=== PATIENT | female | born 1945 | race Caucasian/White ===

== ENCOUNTER 2017-09-09 09:43 | Emergency (ER) | payer OTHER ==
[~2017-09-09] VITALS: Ht 170.2 cm; Wt 118.8 kg
[~2017-09-09 09:43] MED LIST: CELECOXIB200 MG PO; CENTRUM ULTRA1 EAC1 PO; COZAAR100 MG PO; FISH OIL 1,0001 EA10 PO; HYDROCODON-ACE1 EAC7 PO; IRON325 MG PO; LO-DOSE ASPIRIN81 M1 PO; NORVASC10 MG PO; SYNTHROID137 MCG PO; TYLENOL EXTRA500 MG PO; VITAMIN D2000 INTUN PO
[2017-09-09 10:23] LABS: BASOPHIL COUNT 0.1 K/uL (0-0.1); EOSINOPHIL (%) 0.7 % (0-5); EOSINOPHIL COUNT 0.1 K/uL (0-0.3); HEMATOCRIT 37.7 % (36.0-46.0); IMMATURE GRANULOCYTE (%) 0.5 % (0.0-0.7); INSTRUMENT ABS NEUTROPHIL CT 5.7 K/uL; LYMPHOCYTE COUNT 1.5 K/uL (1.0-2.8); MCH 29.6 PG (29.0-34.0); MCV 87.1 FL (83-99); MEAN PLAT.VOLUME 9.6 uM^3 (9.5-12.4); MONOCYTE (%) 7.7 % (3-12); MONOCYTE COUNT 0.6 K/uL (0-0.8); NEUTROPHIL (%) 70.8 % (45-76); NEUTROPHIL COUNT 5.7 K/uL (1.8-6.4); PLATELET COUNT 320 K/uL (156-360); RBC DIS.WIDTH-CV 12.5 % (11.8-14.6); RBC DIS.WIDTH-SD 40.1 % (39-53); RED BLOOD COUNT 4.33 M/uL (3.80-5.20)
[2017-09-09 10:33] LABS: CHLORIDE 99 mEq/L (99-109); POTASSIUM 4.5 mEq/L (3.7-5.4); SODIUM 130 mEq/L (136-147)
[2017-09-09 10:35] LABS: GLUCOSE 120 mg/dL (70-99)
[2017-09-09 10:36] LABS: ANION GAP 12 MEQ/L (2-14)
[2017-09-09 10:37] LABS: TOTAL BILIRUBIN 1.3 mg/dL (0.0-1.0)
[2017-09-09 10:38] LABS: ALKALINE PHOSPHATASE 158 IU/L (3-129)
[2017-09-09 10:39] LABS: GFR ESTIMATE (CALCULATED) 58 mL/min/
[2017-09-09 10:40] LABS: UREA NITROGEN (BUN) 12 mg/dL (9-23)
[2017-09-09 10:42] LABS: LIPASE 18 U/L (1.0-51.0)
[2017-09-09 12:11] LABS: ADD MIUA? YES; BILIRUBIN NEGATIVE; BLOOD SMALL; COLOR STRAW ((YELLOW)); GLUCOSE (STRIP) NEGATIVE; KETONES NEGATIVE; LEUKOCYTES NEGATIVE; NITRITE NEGATIVE; PROTEIN (STRIP) NEGATIVE; SPECIFIC GRAVITY 1.009 (1.000-1.030); UROBILINOGEN 0.2 MG/DL (0.2-1.0)
[2017-09-09 12:14] LABS: BACTERIA NONE SEEN /HPF; EPITHELIAL CELLS RARE /HPF; MUCUS NONE SEEN /LPF; RED BLOOD CELLS 0-5 /HPF (0-5); UCUL ADDED? NO; WHITE BLOOD CELLS 0-5 /HPF (0-5)
[2017-09-09] MEDS ORDERED: CIPRO500 MG PO (14:09)
[2017-09-09] MEDS ORDERED: ZOFRAN ODT4 MG PO (14:09)
[2017-09-09] MEDS ORDERED: FLAGYL500 MG PO (14:09)
[2017-09-09 16:00] VITALS: BP 119/74
== END 2017-09-09 16:00 | disposition home or self-care (01) ==
LOC: EME 09:43
PROVIDERS: Emergency Medicine
DX: K57.32 Diverticulitis of large intestine without perforation or abscess without bleeding (principal); E86.0 Dehydration; R11.0 Nausea; R19.7 Diarrhea, unspecified; Q61.02 Congenital multiple renal cysts; Z90.49 Acquired absence of other specified parts of digestive tract; I10 Essential (primary) hypertension; Z88.0 Allergy status to penicillin
CPT/HCPCS: 74177; 80053; 81003; 83690; 85025; 99281; 99285; J0744; J2405; J7030; S0030

== ENCOUNTER 2017-10-16 13:19 | Emergency (ER) | payer OTHER ==
[~2017-10-16] VITALS: Ht 170.2 cm; Wt 116.3 kg
[~2017-10-16 13:19] MED LIST changes: +CIPRO500 MG PO; +FLAGYL500 MG PO; +ZOFRAN ODT4 MG PO
[2017-10-16 14:09] LABS: BASOPHIL COUNT 0.1 K/uL (0-0.1); EOSINOPHIL (%) 0.7 % (0-5); EOSINOPHIL COUNT 0.1 K/uL (0-0.3); HEMATOCRIT 40.7 % (36.0-46.0); IMMATURE GRANULOCYTE (%) 0.4 % (0.0-0.7); INSTRUMENT ABS NEUTROPHIL CT 7.3 K/uL; LYMPHOCYTE COUNT 2.3 K/uL (1.0-2.8); MCH 29.1 PG (29.0-34.0); MCHC 33.4 G/DL (30.0-36.0); MEAN PLAT.VOLUME 9.1 uM^3 (9.5-12.4); MONOCYTE COUNT 0.6 K/uL (0-0.8); NEUTROPHIL (%) 70.1 % (45-76); NEUTROPHIL COUNT 7.3 K/uL (1.8-6.4); PLATELET COUNT 334 K/uL (156-360); RBC DIS.WIDTH-SD 41.1 % (39-53); RED BLOOD COUNT 4.68 M/uL (3.80-5.20); WHITE BLOOD COUNT 10.4 K/uL (4.1-10.2)
[2017-10-16 14:13] LABS: ADD MIUA? YES; BILIRUBIN NEGATIVE; BLOOD SMALL; COLOR STRAW ((YELLOW)); GLUCOSE (STRIP) NEGATIVE; KETONES NEGATIVE; LEUKOCYTES LARGE; NITRITE NEGATIVE; PROTEIN (STRIP) NEGATIVE; SPECIFIC GRAVITY 1.004 (1.000-1.030); UROBILINOGEN 0.2 MG/DL (0.2-1.0)
[2017-10-16 14:21] LABS: CHLORIDE 101 mEq/L (99-109); POTASSIUM 4.5 mEq/L (3.7-5.4); SODIUM 132 mEq/L (136-147)
[2017-10-16 14:23] LABS: GLUCOSE 110 mg/dL (70-99)
[2017-10-16 14:25] LABS: ANION GAP 10 MEQ/L (2-14); TOTAL BILIRUBIN 0.8 mg/dL (0.0-1.0)
[2017-10-16 14:27] LABS: ALKALINE PHOSPHATASE 142 IU/L (3-129); GFR ESTIMATE (CALCULATED) 58 mL/min/
[2017-10-16 14:28] LABS: UREA NITROGEN (BUN) 13 mg/dL (9-23)
[2017-10-16 14:30] LABS: LIPASE 24 U/L (1.0-51.0)
[2017-10-16 14:32] LABS: BACTERIA 1+ /HPF; EPITHELIAL CELLS RARE /HPF; MUCUS NONE SEEN /LPF; WHITE BLOOD CELLS TNTC /HPF (0-5)
[2017-10-16] MEDS ORDERED: FLAGYL500 MG PO (16:00)
[2017-10-16] MEDS ORDERED: CIPRO500 MG PO (16:00)
[2017-10-16 16:30] VITALS: BP 138/60
== END 2017-10-16 16:31 | disposition home or self-care (01) ==
LOC: EME 13:19
PROVIDERS: Physician Assistant
DX: K57.32 Diverticulitis of large intestine without perforation or abscess without bleeding (principal); Z85.828 Personal history of other malignant neoplasm of skin; Z91.040 Latex allergy status; Z88.0 Allergy status to penicillin
CPT/HCPCS: 74177; 80053; 81003; 83605; 83690; 85025; 87086; 99281; 99285; J7030

== ENCOUNTER 2018-06-10 11:17 | Emergency (ER) | payer OTHER ==
[~2018-06-10] VITALS: Ht 170.2 cm; Wt 96.1 kg
[~2018-06-10 11:17] MED LIST changes: -NORVASC10 MG PO; +NORVASC5 MG PO; +SODIUM CHLORIDE1 G1 PO; +SYNTHROID125 MCG PO
[2018-06-10 13:27] LABS: BASOPHIL (%) 1.2 % (0-1); BASOPHIL COUNT 0.1 K/uL (0-0.1); EOSINOPHIL (%) 0.5 % (0-5); HEMOGLOBIN 12.4 G/DL (11.9-15.5); IMMATURE GRANULOCYTE (%) 0.3 % (0.0-0.7); LYMPHOCYTE (%) 19.5 % (15-42); LYMPHOCYTE COUNT 1.1 K/uL (1.0-2.8); MCH 30.2 PG (29.0-34.0); MCHC 34.4 G/DL (30.0-36.0); MCV 87.6 FL (83-99); MONOCYTE (%) 9.1 % (3-12); MONOCYTE COUNT 0.5 K/uL (0-0.8); NEUTROPHIL (%) 69.4 % (45-76); PLATELET COUNT 318 K/uL (156-360); RBC DIS.WIDTH-CV 12.4 % (11.8-14.6); RBC DIS.WIDTH-SD 40.1 % (39-53); RED BLOOD COUNT 4.11 M/uL (3.80-5.20); WHITE BLOOD COUNT 5.7 K/uL (4.1-10.2)
[2018-06-10 13:36] LABS: CHLORIDE 100 mEq/L (99-109); POTASSIUM 4.4 mEq/L (3.7-5.4); SODIUM 132 mEq/L (136-147)
[2018-06-10 13:38] LABS: GLUCOSE 98 mg/dL (70-99)
[2018-06-10 13:40] LABS: TOTAL BILIRUBIN 0.5 mg/dL (0.0-1.0)
[2018-06-10 13:42] LABS: ALKALINE PHOSPHATASE 155 IU/L (3-129); GFR ESTIMATE (CALCULATED) 58 mL/min/
[2018-06-10 13:43] LABS: UREA NITROGEN (BUN) 8 mg/dL (9-23)
[2018-06-10 13:44] LABS: AST (GOT) 89 IU/L (2-34)
[2018-06-10 13:45] LABS: ALT (GPT) 97 IU/L (3-49)
[2018-06-10 13:52] LABS: APPEARANCE CLEAR ((CLEAR)); BILIRUBIN NEGATIVE; BLOOD NEGATIVE; COLOR YELLOW ((YELLOW)); GLUCOSE (STRIP) NEGATIVE; KETONES NEGATIVE; LEUKOCYTES TRACE; NITRITE NEGATIVE; PROTEIN (STRIP) 30; SPECIFIC GRAVITY 1.008 (1.000-1.030); UROBILINOGEN 0.2 MG/DL (0.2-1.0)
[2018-06-10 14:09] LABS: BACTERIA NONE SEEN /HPF; EPITHELIAL CELLS NONE SEEN /HPF; MUCUS NONE SEEN /LPF; RED BLOOD CELLS 0-5 /HPF (0-5); UCUL ADDED? NO; WHITE BLOOD CELLS NONE SEEN /HPF (0-5)
[2018-06-10] MEDS ORDERED: BENTYL20 MG PO (14:25)
[2018-06-10 15:19] VITALS: BP 144/78
== END 2018-06-10 15:54 | disposition home or self-care (01) ==
LOC: EME 11:17
PROVIDERS: Emergency Medicine
DX: R10.32 Left lower quadrant pain (principal); R19.7 Diarrhea, unspecified; Z85.828 Personal history of other malignant neoplasm of skin; Z90.49 Acquired absence of other specified parts of digestive tract; Z88.0 Allergy status to penicillin; Z91.040 Latex allergy status
CPT/HCPCS: 80053; 81003; 85025; 87493; 87506; 99281; 99285; J7040

== ENCOUNTER 2018-06-14 10:03 | Observation (INO) | payer OTHER ==
[~2018-06-14] VITALS: Ht 172.7 cm; Wt 95.0 kg
[~2018-06-14 10:03] MED LIST changes: +BENTYL20 MG PO
[2018-06-14 12:30] VITALS: BP 141/67
[2018-06-14 14:41] LABS: HEMATOCRIT 34.7 % (36.0-46.0); HEMOGLOBIN 12.1 G/DL (11.9-15.5); MCH 30.3 PG (29.0-34.0); MCHC 34.9 G/DL (30.0-36.0); MCV 86.8 FL (83-99); PLATELET COUNT 272 K/uL (156-360); RBC DIS.WIDTH-CV 12.4 % (11.8-14.6); RBC DIS.WIDTH-SD 39.8 % (39-53); WHITE BLOOD COUNT 8.2 K/uL (4.1-10.2)
[2018-06-14 14:51] LABS: ALBUMIN 3.9 g/dL (3.2-4.8); CHLORIDE 100 mEq/L (99-109); SODIUM 130 mEq/L (136-147)
[2018-06-14 14:54] LABS: GLUCOSE 153 mg/dL (70-99); TOTAL PROTEIN 6.7 g/dL (6.4-8.3)
[2018-06-14 14:56] LABS: TOTAL BILIRUBIN 0.6 mg/dL (0.0-1.0)
[2018-06-14 14:57] LABS: ALKALINE PHOSPHATASE 139 IU/L (3-129); GFR ESTIMATE (CALCULATED) 58 mL/min/
[2018-06-14 14:58] LABS: UREA NITROGEN (BUN) 10 mg/dL (9-23)
[2018-06-14 15:00] LABS: ALT (GPT) 49 IU/L (3-49)
[2018-06-14 15:03] LABS: AST (GOT) 22 IU/L (2-34)
[2018-06-14 16:04] LABS: C-REACTIVE PROTEIN 2.6 MG/L (0-10)
[2018-06-14 16:30] VITALS: BP 141/65
[2018-06-14 16:31] LABS: THYROTROPIN (TSH) 0.22 MIU/L (0.4-5.5)
[2018-06-14 19:54] VITALS: BP 137/65
[2018-06-15 00:05] VITALS: BP 130/62
[2018-06-15 05:20] VITALS: BP 134/59
[2018-06-15 06:54] VITALS: BP 133/69
[2018-06-15 07:49] LABS: C DIFF TOXIN NEGATIVE (NEGATIVE)
[2018-06-15 09:49] LABS: HEMATOCRIT 34.7 % (36.0-46.0); HEMOGLOBIN 11.7 G/DL (11.9-15.5); MCH 29.8 PG (29.0-34.0); MCHC 33.7 G/DL (30.0-36.0); MCV 88.5 FL (83-99); PLATELET COUNT 290 K/uL (156-360); RBC DIS.WIDTH-CV 12.8 % (11.8-14.6); RBC DIS.WIDTH-SD 41.7 % (39-53); RED BLOOD COUNT 3.92 M/uL (3.80-5.20); WHITE BLOOD COUNT 5.8 K/uL (4.1-10.2)
[2018-06-15 10:20] LABS: CHLORIDE 101 MEQ/L (99-109); CREATININE 0.9 MG/DL (0.6-1.3); GFR ESTIMATE (CALCULATED) > 59 mL/min/; GLUCOSE 115 mg/dL (70-99); SODIUM 135 MEQ/L (136-147); UREA NITROGEN (BUN) 9 mg/dL (9-23)
[2018-06-15 15:20] VITALS: BP 158/70
[2018-06-15 23:58] VITALS: BP 123/60
[2018-06-16 07:20] VITALS: BP 136/63
[2018-06-16 12:32] LABS: HEMATOCRIT 37.1 % (36.0-46.0); HEMOGLOBIN 12.7 G/DL (11.9-15.5); MCH 29.7 PG (29.0-34.0); MCHC 34.2 G/DL (30.0-36.0); MCV 86.9 FL (83-99); PLATELET COUNT 226 K/uL (156-360); RBC DIS.WIDTH-CV 12.8 % (11.8-14.6); RBC DIS.WIDTH-SD 40.5 % (39-53); RED BLOOD COUNT 4.27 M/uL (3.80-5.20); WHITE BLOOD COUNT 6.1 K/uL (4.1-10.2)
[2018-06-16 12:49] LABS: ALBUMIN 3.9 G/DL (3.2-4.8); CHLORIDE 103 MEQ/L (99-109); POTASSIUM 4.2 MEQ/L (3.7-5.4); SODIUM 139 MEQ/L (136-147); TOTAL BILIRUBIN 0.6 MG/DL (0.0-1.0)
[2018-06-16 12:55] LABS: ALKALINE PHOSPHATASE 117 IU/L (3-129); ALT (GPT) 28 IU/L (3-49); AST (GOT) 14 IU/L (2-34); CREATININE 0.6 MG/DL (0.6-1.3); GFR ESTIMATE (CALCULATED) > 59 mL/min/; TOTAL PROTEIN 5.8 G/DL (6.4-8.3); UREA NITROGEN (BUN) 6 mg/dL (9-23)
[2018-06-16 13:10] LABS: GLUCOSE 80 mg/dL (70-99)
[2018-06-16 15:21] VITALS: BP 134/65
[2018-06-16 19:29] VITALS: BP 128/81
[2018-06-16 23:33] VITALS: BP 115/57
[2018-06-17 07:28] LABS: CHLORIDE 101 MEQ/L (99-109); CREATININE 0.8 MG/DL (0.6-1.3); GFR ESTIMATE (CALCULATED) > 59 mL/min/; GLUCOSE 84 mg/dL (70-99); POTASSIUM 3.8 MEQ/L (3.7-5.4); SODIUM 137 MEQ/L (136-147); UREA NITROGEN (BUN) 7 mg/dL (9-23)
[2018-06-17 07:43] VITALS: BP 149/63
[2018-06-17] MEDS ORDERED: SYNTHROID112 MCG PO (11:14)
== END 2018-06-17 12:09 | disposition home or self-care (01) ==
LOC: ENRESERV 10:03 → 3EAST 10:03 → ENRESERV 10:07 → 3EAST 12:07
PROVIDERS: Internal Medicine; Student in an Organized Health Care Education/Training Program
DX: K57.32 Diverticulitis of large intestine without perforation or abscess without bleeding (principal); R19.7 Diarrhea, unspecified; E87.1 Hypo-osmolality and hyponatremia; R60.0 Localized edema; R00.1 Bradycardia, unspecified; I10 Essential (primary) hypertension; E89.0 Postprocedural hypothyroidism; I89.0 Lymphedema, not elsewhere classified; Z85.828 Personal history of other malignant neoplasm of skin; E66.9 Obesity, unspecified; Z68.31 Body mass index [BMI] 31.0-31.9, adult; Z91.018 Allergy to other foods; Z80.8 Family history of malignant neoplasm of other organs or systems; Z91.040 Latex allergy status; Z88.0 Allergy status to penicillin
CPT/HCPCS: 74019; 80048; 80048 91; 80053; 81002; 82024 90; 82436; 82533 91; 83835 90; 83880; 83930; 83935; 84133; 84300; 84315; 84439; 84443; 84585 90; 85027; 86140; 87493; 93005; G0378; J7120